=== PATIENT | male | born 1980 | race Hispanic/Latino ===

== ENCOUNTER 2020-10-29 20:45 | Emergency (ER) | payer SELFPAY ==
[~2020-10-29] VITALS: Ht 167.6 cm; Wt 86.2 kg
[2020-10-29] MEDS ORDERED: ACETAMINOPHEN 325 MG TAB ONE (21:01)
[2020-10-29] MEDS ORDERED: TYLENOL # 31 EA PO (21:11)
[2020-10-29] MEDS ORDERED: ACETAMINOPHEN/CODEINE 300MG - 30MG TAB PO ONE (21:15)
[2020-10-29] MEDS ORDERED: ACETAMINOPHEN 325 MG TAB PO ONE (21:15)
== END 2020-10-29 22:17 | disposition home or self-care (01) ==
LOC: ER 21:04
DX: U07.1 COVID-19 (principal); J18.9 Pneumonia, unspecified organism; R50.9 Fever, unspecified; R05 Cough
CPT/HCPCS: 71045; 99283

== ENCOUNTER 2020-10-30 21:30 | Emergency (ER) | payer SELFPAY ==
[~2020-10-30] VITALS: Ht 167.6 cm; Wt 86.2 kg
[~2020-10-30 21:30] MED LIST: TYLENOL # 31 EA PO
[2020-10-30 21:58] LABS: BASOPHILS % 0.2 % (0.0-1.0); HEMATOCRIT 42.1 % (38.2-49.6); HEMOGLOBIN 14.4 g/dL (14.0-18.0); LYMPHOCYTES # (AUTO) 0.6 (1.0-3.2); LYMPHOCYTES % 10.6 % (18.0-39.1); MEAN CORPUSCULAR HEMOGLOBIN 30.8 pg (28-32); MEAN CORPUSCULAR HGB CONC 34.2 g/dL (31-35); MONOCYTES # (AUTO) 0.4 (0.2-0.8); MONOCYTES % 7.5 % (4.4-11.3); NEUTROPHILS # (AUTO) 4.2 (2.1-6.9); NEUTROPHILS % 81.3 % (38.7-80.0); PLATELET COUNT 171 x10e3/uL (140-360); RED BLOOD COUNT 4.68 x10e6/uL (4.3-5.7); RED CELL DISTRIBUTION WIDTH 12.1 % (11.7-14.4)
[2020-10-30] MEDS ORDERED: IBUPROFEN 600 MG TAB PO STA (22:03)
[2020-10-30] MEDS ORDERED: IBUPROFEN 600 MG TAB ONE (22:04)
[2020-10-30 22:17] LABS: ALANINE AMINOTRANSFERASE 20 IU/L (0-55); ALBUMIN 3.3 g/dL (3.5-5.0); ALBUMIN/GLOBULIN RATIO 0.9 (0.8-2.0); ALKALINE PHOSPHATASE 55 IU/L (40-150); ANION GAP 15.4 mmol/L (8-16); BLOOD UREA NITROGEN 10 mg/dL (7-26); BUN/CREATININE RATIO 13 (6-25); CALCIUM 8.4 mg/dL (8.4-10.2); CARBON DIOXIDE 21 mmol/L (22-29); CHLORIDE 100 mmol/L (98-107); CREATINE KINASE 112 IU/L (30-200); EST GLOMERULAR FILTRATION RATE > 60 ML/MIN (60-); GLUCOSE 151 mg/dL (74-118); POTASSIUM 3.4 mmol/L (3.5-5.1); SODIUM 133 mmol/L (136-145)
[2020-10-30 23:56] VITALS: BP 135/84
== END 2020-10-31 00:05 | disposition home or self-care (01) ==
LOC: ER 21:53
DX: U07.1 COVID-19 (principal); J18.9 Pneumonia, unspecified organism; R06.02 Shortness of breath
CPT/HCPCS: 36415; 71260; 80053; 82550; 82553; 84484; 85025; 93005; 99284